=== PATIENT | female | born 1995 | race Caucasian/White ===

== ENCOUNTER 2016-11-15 07:58 | Day surgery (SDC) | payer OTHER ==
[~2016-11-15] VITALS: Ht 154.9 cm; Wt 50.0 kg
[~2016-11-15 07:58] MED LIST: BUPIVACAINE/PF-EPI 0.25% 1:200K ONE
[2016-11-15 08:23] VITALS: BP 119/83
[2016-11-15] MEDS ORDERED: NO HOME MEDS (08:23)
[2016-11-15] MEDS ORDERED: LACTATED RINGERS 1,000 ML IV SCH (08:38)
[2016-11-15] MEDS ORDERED: FENTANYL PF 250 MCG/5ML ONE (08:42)
[2016-11-15] MEDS ORDERED: MIDAZOLAM 1 MG/ML, 2ML ONE (08:42)
[2016-11-15 08:50] LABS: HCG UR OBC PASS
[2016-11-15] MEDS ORDERED: CEFAZOLIN 1,000 MG ONE (08:55)
[2016-11-15] MEDS ORDERED: GLYCOPYRROLATE 0.2MG/1ML ONE (08:55)
[2016-11-15] MEDS ORDERED: KETOROLAC 30 MG/1 ML ONE (08:55)
[2016-11-15] MEDS ORDERED: PROPOFOL 10 MG/ML, 20ML ONE (08:55)
[2016-11-15] MEDS ORDERED: DEXAMETHASONE 4 MG/ML, 5ML ONE (08:55)
[2016-11-15] MEDS ORDERED: SUCCINYLCHOLINE 20 MG/ML, 10ML ONE (08:55)
[2016-11-15] MEDS ORDERED: NEOSTIGMINE 1 MG/ML, 10ML ONE (08:55)
[2016-11-15] MEDS ORDERED: ONDANSETRON 2MG/ML, 2ML ONE (08:55)
[2016-11-15] MEDS ORDERED: ROCURONIUM 10 MG/ML ONE (08:55)
[2016-11-15] MEDS ORDERED: hydrALAzine 20 MG/ML, 1ML IV PRN (09:00)
[2016-11-15] MEDS ORDERED: ONDANSETRON 2MG/ML, 2ML IVPush PRN (09:00)
[2016-11-15] MEDS ORDERED: MIDAZOLAM 1 MG/ML, 2ML IV PRN (09:00)
[2016-11-15] MEDS ORDERED: ALBUTEROL SULFATE 2.5 MG/3 ML NPPB PRN (09:00)
[2016-11-15] MEDS ORDERED: MEPERIDINE/PF 25MG/0.5ML IVPush PRN (09:00)
[2016-11-15] MEDS ORDERED: LABETALOL 5MG/ML, 20ML IV PRN (09:00)
[2016-11-15] MEDS ORDERED: PROMETHAZINE 25 MG/ML, 1ML IV PRN (09:00)
[2016-11-15] MEDS ORDERED: OXYcodone 5 MG/5 ML ORAL.SOL UDC PO PRN (09:00)
[2016-11-15] MEDS ORDERED: FENTANYL PF 100 MCG/2ML IV PRN (09:00)
[2016-11-15] MEDS ORDERED: ACETAMINOPHEN 325 MG TABLET PO PRN (09:00)
[2016-11-15] MEDS ORDERED: LIDOCAINE 1%, 2ML SQ PRN (09:00)
[2016-11-15] MEDS ORDERED: HYDROmorphone 1 MG/ML, 1ML IV PRN (09:00)
[2016-11-15] MEDS ORDERED: ACETAMINOPHEN 325 MG TABLET ONE (10:30)
[2016-11-15] MEDS ORDERED: ACETAMINOPHEN 650 MG/20.3 ML UDC ONE (10:30)
[2016-11-15] MEDS ORDERED: OXYcodone 5 MG/5 ML ORAL.SOL UDC ONE (10:31)
== END 2016-11-15 12:10 ==
LOC: OUT 07:58
PROVIDERS: ATTEND Surgery
DX: K80.10 Calculus of gallbladder with chronic cholecystitis without obstruction (principal); K82.8 Other specified diseases of gallbladder
CPT/HCPCS: 47562; 81025; 88304; J0330; J0690; J1100; J1885; J2250; J2405; J2704; J2710; J3010; J7120; J3490